=== PATIENT | male | born 1965 | race Caucasian/White ===

== ENCOUNTER 2025-04-04 18:49 | Emergency (ER) | payer BC, SELFPAY ==
[2025-04-04 18:56] VITALS: BP 165/109
[2025-04-04 19:17] LABS: Hematocrit 45.9 % (39.0-52.0); Hemoglobin 16.4 g/dL (13.0-18.0); Mean Corp Hgb Conc. 35.7 g/dL (33.0-37.0); Mean Corpuscular Volume 83.6 fL (80.0-94.0); Nucleated Red Blood Cells % 0 % (-); Platelet Count 265 10^3/uL (130-400); Red Cell Dist. Width 12.3 % (11.5-14.5)
[2025-04-04 19:20] LABS: Urine Character Slightly Cloudy (Clear)
[2025-04-04 19:33] LABS: ALT (SGPT) 29 U/L (0-50); AST (SGOT) 27 U/L (17-59); Albumin 5.0 g/dl (3.5-5.0); Alkaline Phosphatase 64 U/L (38-126); Blood Urea Nitrogen 18 mg/dl (9-20); Calcium 10.6 mg/dl (8.4-10.2); Carbon Dioxide 31 mmol/L (22-30); Chloride 99 mmol/L (98-107); Glucose 110 mg/dl (70-99); Lipase 167 U/L (23-300); Potassium 4.6 mmol/L (3.5-5.1); Sodium 136 mmol/L (135-145); Total Protein 8.0 g/dl (6.3-8.2); eGFR > 60.00
[2025-04-04 19:44] LABS: Urine Red Blood Cell 50-60 /HPF (0-2); Urine Squamous Cell 0-2 /LPF (Few); Urine Urothelial Cell 0-2 /LPF (FEW)
[2025-04-04] MEDS: TORADOL 15 MG IM (20:15)
[2025-04-04] MEDS: NSS 1000 IV (20:15)
[2025-04-04 20:20] VITALS: BMI 29.5
--- NOTE | 2025-04-04 20:51 | ED.GENMED ---
History of Present Illness
General
Chief Complaint: Flank Pain
Time Seen by Provider: 04/04/25 19:19
History of Present Illness
History of Present Illness:
59-year-old male with prior history of kidney stones presenting to the emergency department for left-sided flank pain. Patient reports symptoms started earlier this evening, after eating dinner. By time of arrival, pain has started to travel to
the left lower quadrant region of the abdomen. Notes previous kidney stone to the right side. Does report that he passed this kidney stone previously. Patient denies any history of abdominal surgeries. Denies any fever, nausea, vomiting. Does
report some urinary frequency without dysuria or hematuria. Denies chest pain or difficulty breathing or additional acute medical complaint
Past History
Past History
ED Past Medical History: Hypercholesterolemia
ED Past Surgical History: None
Social History
Tobacco: Non-smoker
Alcohol: Occasional
Drug: None
Personal:
Living: with family
Phy Exam
Physical Exam
Physical Exam:
General: Well-appearing, no clinical signs of dehydration, nontoxic and in no acute distress
HEENT: protecting airway
Neck: appears supple
CV: Normal heart rate, regular rhythm
Resp: No accessory muscle use, no increased work of breathing
Abd: Soft and non-distended, no tenderness to palpation
Extremities: No deformities, no swelling
Neuro: alert, no focal neurologic deficit
: deferred
Rectal: deferred
Psych: Normal affect
Skin: Intact
Course
Orders/Labs/Results
Orders:
Orders
04/04/25 19:10
Complete Blood Count/With Diff Urgent
Comprehensive Metabolic Panel Urgent
Lipase Urgent
Urinalysis Reflex To Culture Urgent
Date Specimen was Collected: 04/04/25
Time Specimen was Collected: 18:58
Urine Microscopic Reflex Cult Urgent
Urine Culture Urgent
JONATHAN Source: U
Specimen Description:
Date Specimen was Collected: 04/04/25
Time Specimen was Collected: 18:58
04/04/25 20:04
0.9% Sodium Chloride 1000 ml [Nss] 1,000 ml IV BOLUS
Ketorolac [Toradol] 15 mg IM NOW STA
04/04/25 20:05
CT Abd/pel Without Iv Or Oral Urgent
Comment:
Reason For Exam: L-sided pain, suspected stone
Abnormal Lab Results
04/04/25
19:10
Absolute Monos (auto) 0.7 H 10^3/uL
(0.1-0.6)
Monocytes % 9.6 H %
(1.7-9.3)
Carbon Dioxide 31 H mmol/L
(22-30)
Glucose 110 H mg/dl
(70-99)
Calcium 10.6 H mg/dl
(8.4-10.2)
Ur Occult Blood Reflex 4+ A
(Negative)
Leukocyte Esterase Rfl 1+ A
(Negative)
Urine RBC 50-60 A /HPF
(0-2)
Urine Bacteria (Reflex) Moderate A
(Negative)
Urine Albumin (Reflex) 2+ A
(Neg - Trace)
04/04/25 19:10
04/04/25 19:10
Vital Signs
Initial and Last Documented VS:
Initial Vital Signs
Temp Pulse Resp BP Pulse Ox
97.9 F 79 18 165/109 99
04/04/25 18:56 04/04/25 18:56 04/04/25 18:56 04/04/25 18:56 04/04/25 18:56
Last Documented Vital Signs
Temp Pulse Resp BP Pulse Ox
97.9 F 79 18 165/109 99
04/04/25 18:56 04/04/25 18:56 04/04/25 18:56 04/04/25 18:56 04/04/25 20:53
MDM/Problems Addressed
MDM/Problems Addressed:
59-year-old male with prior history of kidney stones presenting for left flank pain and abdominal pain. Vital signs on arrival are significant for hypertension.
On exam, patient is afebrile, nontoxic. Notes that pain has improved since arrival to the hospital. Pain initially in the left flank region, has not traveled to the left lower quadrant. Symptoms and physical exam appear most consistent with acute
kidney stone. Labs obtained prior to my assessment which do show mild leukocytosis. However no sign of UTI. There is blood in the urine, again likely indicating nephrolithiasis. Plan for CT abdomen pelvis. Toradol ministered for pain. Will
also administer IV fluids.
21:50 -patient CT is consistent with a 7.1 mm stone in the proximal left ureter with some mild hydronephrosis. Patient notes that his pain is currently controlled. At this time, given pain control and absence of any concerning features for
infection, feel stable for discharge with outpatient neurologic follow-up. Will start patient on Flomax. Patient declining any narcotic pain medication. Will prescribe higher dose ibuprofen. Strict return precautions were communicated to patient
verbalized understanding
*Pulse Oximetry
SaO2: 99
Oxygen Mode of Delivery: Room air
Patient hypoxic: no
*Critical Care Note
Total Time (30-74mins, 75-104mins- exclusive of procedures): Not Applicable
ED Attending Note
-
Portions of this chart may have been created with voice recognition software.� Occasional wrong word or��sound alike� substitutions may have occurred due to the inherent limitations of voice recognition software.
Discharge Plan
Departure
Prescriptions:
No Action
atorvastatin 10 MG tablet
10 mg PO QPM
ibuprofen 400 MG tablet
400 mg PO PRN PRN (Reason: pain)
lorazepam 1 MG tablet
1 mg PO DAILY PRN (Reason: anxiety) Qty: 10 0RF
Referrals:
Gloria Howard MD [Family Provider, Family Practice]
Interventions
Interventions:
*Risk Screen - Suicide Last Done: 04/04/25 18:56
*General Assessment Last Done: 04/04/25 18:56
*Neglect/Abuse Screening Last Done: 04/04/25 18:56
*ED COVID-19 Vaccine History Last Done: 04/04/25 18:56
*ED Influenza Vaccine History Last Done: 04/04/25 18:56
FY-Owwzbv-Ceoqkqhrjr Assessment Last Done: 04/04/25 20:18
ED-Male Genitourinary Assessment Last Done: 04/04/25 20:18
Discharge Date and Time
Print Language: SERBIAN
[2025-04-04 22:01] VITALS: BP 159/106
[2025-04-04] MEDS: FLOMAX 0.4 MG PO (22:08)
== END 2025-04-04 22:18 | disposition home or self-care (01) ==
LOC: EMR 18:49
PROVIDERS: Emergency Medicine; EMERGENCY PHYSICIAN Student in an Organized Health Care Education/Training Program; FAMILY PHYSICIAN Family Medicine
DX: N13.2 Hydronephrosis with renal and ureteral calculous obstruction (principal); D72.829 Elevated white blood cell count, unspecified; E78.00 Pure hypercholesterolemia, unspecified; Z87.442 Personal history of urinary calculi
CPT/HCPCS: 99284; 96360; 96372; 74176; 80053; 81003; 81015; 83690; 85025; 87086

== ENCOUNTER 2025-05-04 06:22 | Day surgery (SDC) | payer BC, SELFPAY ==
[2025-05-04] VITALS (10 sets, daily range): BP systolic 114–191; BP diastolic 65–118; BMI 28.1
[2025-05-04] MEDS: NORMOSOL-R/PLASMALYTE-A 1000 IV (14:20)
[2025-05-04] MEDS: SUBLIMAZE 50 MCG IV (19:31)
[2025-05-04] MEDS: TYLENOL 650 MG PO (19:51)
[2025-05-04] MEDS: ROXICODONE 5 MG PO (20:28)
== END 2025-05-04 21:05 | disposition home or self-care (01) ==
LOC: SDS 06:22
PROVIDERS: ATTENDING PHYSICIAN Specialist
DX: N20.2 Calculus of kidney with calculus of ureter (principal)
CPT/HCPCS: 52356; 74018; 76000; 80053; 85025; 93005; C1894

== ENCOUNTER 2025-05-04 23:56 | Emergency (ER) | payer BC, SELFPAY ==
[2025-05-05 00:10] VITALS: BP 172/106
[2025-05-05 00:42] LABS: Hematocrit 45.2 % (39.0-52.0); Hemoglobin 16.2 g/dL (13.0-18.0); Mean Corp Hgb Conc. 35.8 g/dL (33.0-37.0); Mean Corpuscular Volume 83.4 fL (80.0-94.0); Nucleated Red Blood Cells % 0 % (-); Platelet Count 270 10^3/uL (130-400); Red Cell Dist. Width 12.0 % (11.5-14.5)
[2025-05-05 00:58] LABS: ALT (SGPT) 26 U/L (0-50); AST (SGOT) 28 U/L (17-59); Albumin 5.2 g/dl (3.5-5.0); Alkaline Phosphatase 83 U/L (38-126); Blood Urea Nitrogen 16 mg/dl (9-20); Calcium 9.8 mg/dl (8.4-10.2); Carbon Dioxide 25 mmol/L (22-30); Chloride 102 mmol/L (98-107); Glucose 190 mg/dl (70-99); Potassium 4.3 mmol/L (3.5-5.1); Sodium 139 mmol/L (135-145); Total Protein 8.0 g/dl (6.3-8.2); eGFR > 60.00
[2025-05-05 01:29] VITALS: BP 178/95
[2025-05-05 01:35] VITALS: BMI 28.1
[2025-05-05 02:00] VITALS: BP 157/86
[2025-05-05 03:00] VITALS: BP 147/89
[2025-05-05 04:00] VITALS: BP 151/88
--- NOTE | 2025-05-05 04:00 | ED.GENMED ---
History of Present Illness
<Nathalia Saini MD, Resident - Last Filed: 05/05/25 04:18>
General
Chief Complaint: Flank Pain
Source: patient and spouse
Time Seen by Provider: 05/05/25 03:33
History of Present Illness
History of Present Illness:
Patient is a 60-year-old male with past medical history significant for hyperlipidemia, today he underwent elective cystoscopy, left ureteroscopy with stone fragmentation and removal and ureteral stent insertion. He was discharged around 830 to 9
PM and at that time he received something for pain in the hospital and was instructed to not take tramadol for the next 4 hours.
Around 1030 to 11 PM, patient had excruciating pain 10/10 in intensity, in the left flank, associated with some mild nausea. He did not take any tramadol at home since he was afraid that he was told not to take it for next 4 hours so he came to the
ER. In the ER, his pain self resolved and decreased in intensity to 3/10 and his blood pressure started to improve.
Denies any other symptoms including fever chills, vomiting, dizziness, lightheadedness, near-syncope or syncopal episodes.
Past History
<Nathalia Saini MD, Resident - Last Filed: 05/05/25 04:18>
Past History
ED Past Medical History: Hypercholesterolemia
ED Past Surgical History: None
Social History
Tobacco: Non-smoker
Alcohol: Occasional
Drug: None
Personal:
Living: with family
Review of Systems
<Nathalia Saini MD, Resident - Last Filed: 05/05/25 04:18>
Review of Systems
All Other Systems: ROS reviewed and negative except as documented in HPI and ROS
Phy Exam
<Nathalia Saini MD, Resident - Last Filed: 05/05/25 04:18>
General Physical Exam
General Presentation: well appearing and no apparent distress
General Skin: warm and dry
General Habitus: normal
General Mental: alert
Cardiovascular Exam
Cardiovascular Exam: regular rate/rhythm, no edema, no gallop, no murmur and normal peripheral pulses
Pulmonary Exam
Pulmonary Exam: lungs clear, no respiratory distress, no rales, no crackles and no rhonchi
Gastrointestinal Exam
Gastrointestinal Exam: normal bowel sounds, non tender and soft
Genitourinary Exam Male
Exam Male: other (HEMATURIA)
Neurological Exam
Neurological Exam: alert, oriented x3, no motor deficits and no sensory deficits
Musculoskeletal Exam
Musculoskeletal Exam: full ROM
Skin Exam
Skin Exam: normal color and warm/dry
Psychiatric Exam
Psychiatric Exam: normal mood/affect
Course
<Nathalia Saini MD, Resident - Last Filed: 05/05/25 04:18>
Orders/Labs/Results
Orders:
Orders
05/05/25 00:28
CBC/With Diff [Complete Blood Count/With Diff] Stat
Comprehensive Metabolic Panel Stat
05/05/25 04:00
Tramadol HCl [Ultram] 50 mg PO NOW ONE
Abnormal Lab Results
05/05/25
00:28
WBC 12.3 H 10^3/uL
(4.8-10.8)
Absolute Neuts (auto) 11.5 H 10^3/uL
(1.4-6.5)
Absolute Lymphs (auto) 0.6 L 10^3/uL
(1.2-3.4)
Neutrophils % 93.5 H %
(42.2-75.2)
Lymphocytes % 4.7 L %
(20.5-51.1)
Monocytes % 1.4 L %
(1.7-9.3)
Glucose 190 H mg/dl
(70-99)
Albumin 5.2 H g/dl
(3.5-5.0)
05/05/25 00:28
05/05/25 00:28
Vital Signs
Initial and Last Documented VS:
Initial Vital Signs
Pulse Resp BP Pulse Ox
89 16 172/106 100
05/05/25 00:10 05/05/25 00:10 05/05/25 00:10 05/05/25 00:10
Last Documented Vital Signs
Temp Pulse Resp BP Pulse Ox
99.1 F 97 22 147/89 96
05/05/25 01:35 05/05/25 03:45 05/05/25 03:45 05/05/25 03:00 05/05/25 04:02
<Alia Montoya, DO - Last Filed: 05/05/25 04:47>
Orders/Labs/Results
Orders:
Orders
05/05/25 00:28
CBC/With Diff [Complete Blood Count/With Diff] Stat
Comprehensive Metabolic Panel Stat
05/05/25 04:00
Tramadol HCl [Ultram] 50 mg PO NOW ONE
Abnormal Lab Results
05/05/25
00:28
WBC 12.3 H 10^3/uL
(4.8-10.8)
Absolute Neuts (auto) 11.5 H 10^3/uL
(1.4-6.5)
Absolute Lymphs (auto) 0.6 L 10^3/uL
(1.2-3.4)
Neutrophils % 93.5 H %
(42.2-75.2)
Lymphocytes % 4.7 L %
(20.5-51.1)
Monocytes % 1.4 L %
(1.7-9.3)
Glucose 190 H mg/dl
(70-99)
Albumin 5.2 H g/dl
(3.5-5.0)
12/06/25 00:28
05/05/25 00:28
Vital Signs
Initial and Last Documented VS:
Initial Vital Signs
Pulse Resp BP Pulse Ox
89 16 172/106 100
05/05/25 00:10 05/05/25 00:10 05/05/25 00:10 05/05/25 00:10
Last Documented Vital Signs
Temp Pulse Resp BP Pulse Ox
99.1 F 97 22 147/89 96
05/05/25 01:35 05/05/25 03:45 05/05/25 03:45 05/05/25 03:00 05/05/25 04:02
<Nathalia Saini MD, Resident - Last Filed: 05/05/25 04:18>
MDM/Problems Addressed
Differential Diagnosis Includes:
Pain related to recent procedure
Ureteric colic
MDM/Problems Addressed:
Patient underwent ureteral intervention (cystoscopy with left ureteroscopy, stone fragmentation and left sided ureteral stent) today.
Presented to ER with excruciating pain most likely secondary to inadequate pain management,cbc cmp in er wnl
Recommend using tramadol as needed for pain along with fiber in diet/Colace to help avoid constipation related to tramadol
Reassured the patient
Patient is supposed to follow-up with urology in 10 days
Plan; tramadol stat, observe, reassure and discharge
<Nathalia Sanii MD, Resident - Last Filed: 05/05/25 04:18>
*Pulse Oximetry
SaO2: 96
Oxygen Mode of Delivery: Room air
Patient hypoxic: no
*Critical Care Note
Total Time (30-74mins, 75-104mins- exclusive of procedures): Not Applicable
ED Attending Note
<Nathalia Saini MD, Resident - Last Filed: 05/05/25 04:18>
-
Portions of this chart may have been created with voice recognition software.� Occasional wrong word or��sound alike� substitutions may have occurred due to the inherent limitations of voice recognition software.
<Alia Montoya, DO - Last Filed: 05/05/25 04:47>
ED Attending Note
Patient seen and examined by attending physician: Yes
I performed a history and physical exam of patient and discussed management with resident, I reviewed resident's note and agree with documented findings and plan of care.: Yes
ED Attending Note:
60-year-old gentleman with history of kidney stones underwent lithotripsy and stent procedure of left kidney just yesterday. Discharged to home around 9 PM last night. Was prescribed tramadol to take for pain but states his discharge instructions
recommended holding off on pain medications for 4 hours postdischarge. Upon returning home left flank pain resumed around 10�11 PM and persisted prompting ED visit.
Since arrival to the ED, lengthy wait time, pain has since resolved. He admits to very mild discomfort but no significant flank nor abdominal pain.
He has been urinating dark maroon urine. No dysuria. No fever. Mild nausea with onset of pain but no vomiting.
60-year-old gentleman appears his stated age, awake and alert, pleasant, appears in no acute distress. Afebrile.
Abdomen: Mild left flank tenderness to palpation.
Patient urinating dark maroon urine but able to do so without difficulty.
Currently comfortable with only mild discomfort.
Labs show mildly elevated white blood cell count. Chemistries are unremarkable.
Will give an oral dose of tramadol now. Continue to observe.
Will prescribe Zofran for as needed nausea.
Discussed importance of staying well hydrated on a daily basis.
Okay to take tramadol as needed for pain and if ineffective or if he develops a fever, intractable vomiting, prompt return to the ED for further evaluation.
Discharge Plan
Departure
Patient Disposition: Home (Routine Discharge)
Date of Disposition: 05/05/25
Time of Disposition: 04:40
Patient with high blood pressure during this ER visit?: No
Condition: Good
Discharge Problem:
postoperative flank pain
Instructions: Renal Colic (DC)
Prescriptions:
New
ondansetron 4 mg tablet,disintegrating
4 mg PO QID PRN (Reason: nausea and vomiting) Qty: 20 0RF
No Action
atorvastatin 10 MG tablet
10 mg PO QPM
ibuprofen 800 mg tablet
800 mg PO Q8H PRN (Reason: Pain) Qty: 20 0RF
tamsulosin 0.4 mg Capsule
0.4 mg PO DAILY
sildenafil
1 tab PO PRN PRN (Reason: ED)
tramadol
1 tab PO PRN PRN (Reason: pain)
Referrals:
Telma Loera CRNP [Family Provider, Internal Medicine]
Mike Silva MD [Active, Urology] - Call in 1-3 days for appt
Interventions
Interventions:
*Risk Screen - Suicide Last Done: 05/05/25 00:10
*Neglect/Abuse Screening Last Done: 05/05/25 00:10
*ED COVID-19 Vaccine History Last Done: 05/05/25 00:10
*ED Influenza Vaccine History Last Done: 05/05/25 00:10
[facility] Fall Risk Assessment Tool Last Done: 05/05/25 01:36
QM-Eraphb-Cbykthkwpf Assessment Last Done: 05/05/25 01:50
ED-Male Genitourinary Assessment Last Done: 05/05/25 01:50
Discharge Date and Time
Print Language: ARMENIAN
[2025-05-05] MEDS: ULTRAM 50 MG PO (04:03)
== END 2025-05-05 05:30 | disposition home or self-care (01) ==
LOC: EMR 23:56
PROVIDERS: EMERGENCY PHYSICIAN Emergency Medicine; FAMILY PHYSICIAN Nurse Practitioner Family
DX: G89.18 Other acute postprocedural pain (principal); R10.A2 Flank pain, left side; R11.0 Nausea; E78.00 Pure hypercholesterolemia, unspecified
CPT/HCPCS: 99283; 80053; 85025

== ENCOUNTER 2025-05-06 20:20 | Emergency (ER) | payer BC, SELFPAY ==
[2025-05-06 20:27] VITALS: BP 200/126
[2025-05-06 21:03] VITALS: BP 155/104
[2025-05-06 21:16] LABS: Urine Character Cloudy (Clear)
[2025-05-06 21:26] LABS: Urine Squamous Cell 0-2 /LPF (Few)
[2025-05-06 21:27] LABS: Urine Red Blood Cell 70-80 /HPF (0-2); Urine White Cell 30-40 /HPF (0-5)
[2025-05-06 22:01] VITALS: BP 156/99
--- NOTE | 2025-05-06 22:23 | ED.GENMED ---
History of Present Illness
General
Chief Complaint: Urinary Symptoms
Source: patient and spouse
Time Seen by Provider: 05/06/25 20:34
History of Present Illness
History of Present Illness:
Note:
CHIEF COMPLAINT(S)
Back pain following lithotripsy.
HISTORY OF PRESENT ILLNESS
The patient is a 60-year-old male who presents with post-procedural symptoms following laser lithotripsy performed on Wednesday. The patient reports returning after midnight into Wednesday morning due to back pain. He describes initial hematuria
following the procedure, which has since diminished, noting that the urine has transitioned from bloody to yellow. The patient describes being up every 20 minutes overnight to void, producing only minimal amounts of urine each time. He denies
significant fevers but experienced sweating episodes followed by chills. The pain was reported to be around a level five on a scale of ten. There was no prescription of antibiotics following the procedure. The patient mentions concern about possible
clot retention or bladder outlet obstruction secondary to the procedure.
EXTERNAL RECORDS REVIEWED
The patients operative report for the recent lithotripsy was reviewed.
MEDICATIONS
The patient confirmed not being on any blood thinners.
PHYSICAL EXAM
General: Alert, cooperative, no acute distress.
Skin: Warm and dry.
Head: Normocephalic, atraumatic.
Neck: Supple, trachea midline.
Ear, Nose, and Throat: Oral mucosa moist.
Cardiovascular: Normal peripheral perfusion, no edema.
Respiratory: Respirations are non-labored. No respiratory distress.
Gastrointestinal: Abdomen nondistended.
Back: Normal range of motion, normal alignment.
Musculoskeletal: Normal range of motion, normal strength.
Neurological: Alert and oriented to person, place, time, and situation. No focal neurological deficit observed.
Psychiatric: Cooperative, appropriate mood and affect.
PROBLEM LIST
Acute:
1. Post-lithotripsy hematuria and back pain.
2. Possible bladder outlet obstruction or clot retention.
PLAN
1. Send urine for culture to rule out infection.
2. Continue monitoring urine output and color changes.
3. Coordinate follow-up with the urologist physical education professor regarding current symptoms and management.
4. Provide supportive care, monitor for further complications, and address the patients comfort.
DIFFERENTIAL DIAGNOSIS
The Differential Diagnosis includes, in no particular order and is not limited to:
1. Post-procedure inflammation or irritation
2. Clot retention
3. Urinary tract infection
4. Residual calculus fragments
5. Bladder outlet obstruction
6. Ureteral injury
7. Infection secondary to the procedure
8. Hydronephrosis
9. Hemorrhagic cystitis
10. Overactive bladder due to irritation
Disposition:
SUMMARY OF ENCOUNTER
A 60-year-old male presented to the emergency department following a recent urologic procedure, reporting urinary retention. Examination revealed no significant clots to suggest clot retention. The patient experienced improvement after a Del Castillo
catheter was placed. A urinalysis showed only a few bacteria, prompting a decision to culture. The patient was afebrile and appeared well, suggesting suitability for outpatient management.
DISPOSITION
Discharge
ASSESSMENT
Post-procedural urinary retention, no significant clots noted, possible bacterial presence.
PLAN
Urine culture to be conducted. A Del Castillo catheter will remain in place. The patient is advised to follow up with the urology office the next day, as instructed by Dr. Silva, who performed the procedure.
MANAGEMENT OF THE PATIENTS CARE WAS DISCUSSED WITH
Dr. Silva from Urology.
PATIENT EDUCATION AND COUNSELING
The patient was educated on the importance of keeping the Del Castillo catheter in place and was instructed to contact the urology office for a follow-up appointment the next day.
FOLLOW-UP INSTRUCTIONS
Follow up with the urology office tomorrow as advised by Dr. Silva.
MEDICAL DECISION MAKING
-Complexity of Data Reviewed: Acute condition affecting care.
-Data:
Category 3
Discussion of management with other physician: Dr. Silva, the urologist who performed the procedure.
-Risk: Consideration of Admission/Observation: Escalation of care including admission/observation was considered given the complexity and risk of the patients presenting complaint, exam findings, and/or their underlying comorbidities. However,
ultimately I feel the patient is safe for outpatient management with close follow up. Reasoning: Work-up reassuring, does not reveal any acute life/organ threatening processes, patients symptoms well controlled upon reevaluation, reexamination is
reassuring, vitals are stable, patient agreeable with discharge, reliable for follow-up.
DIAGNOSIS
Post-procedural urinary retention (ICD-10: R33.8).
Past History
Past History
ED Past Medical History: Hypercholesterolemia
ED Past Surgical History: None
Social History
Tobacco: Non-smoker
Alcohol: Occasional
Drug: None
Personal:
Living: with family
Phy Exam
Physical Exam
Physical Exam:
.
Course
Orders/Labs/Results
Orders:
Orders
05/06/25 20:58
Del Castillo [Del Castillo Placement- Treatment] ONCE
Reason for insertion: Acute Retention
05/06/25 21:09
Urinalysis Reflex To Culture Urgent
Date Specimen was Collected: 05/06/25
Time Specimen was Collected: 21:04
Urine Microscopic Reflex Cult Urgent
Urine Culture Urgent
JONATHAN Source: U
Specimen Description:
Date Specimen was Collected: 05/06/25
Time Specimen was Collected: 21:04
Abnormal Lab Results
05/06/25
21:09
Urine Ketones 1+ A
(Negative)
Ur Occult Blood Reflex 4+ A
(Negative)
Urine Nitrite (Reflex) Positive A
(Negative)
Leukocyte Esterase Rfl 1+ A
(Negative)
Urine RBC 70-80 A /HPF
(0-2)
Urine WBC (Reflex) 30-40 A /HPF
(0-5)
Urine Bacteria (Reflex) Few A
(Negative)
Urine Albumin (Reflex) 3+ A
(Neg - Trace)
Vital Signs
Initial and Last Documented VS:
Initial Vital Signs
Temp Pulse Resp BP Pulse Ox
97.7 F 124 26 200/126 97
05/06/25 20:27 05/06/25 20:27 05/06/25 20:27 05/06/25 20:27 05/06/25 20:27
Last Documented Vital Signs
Temp Pulse Resp BP Pulse Ox
97.7 F 124 26 156/99 97
05/06/25 20:27 05/06/25 20:27 05/06/25 20:27 05/06/25 22:01 05/06/25 22:25
*Pulse Oximetry
SaO2: 97
Oxygen Mode of Delivery: Room air
Patient hypoxic: no
*Critical Care Note
Total Time (30-74mins, 75-104mins- exclusive of procedures): Not Applicable
ED Attending Note
-
Portions of this chart may have been created with voice recognition software.� Occasional wrong word or��sound alike� substitutions may have occurred due to the inherent limitations of voice recognition software.
Discharge Plan
Departure
Patient Disposition: Home (Routine Discharge)
Date of Disposition: 05/06/25
Time of Disposition: 22:23
Patient with high blood pressure during this ER visit?: Yes
Discharge Problem:
Acute urinary retention
Instructions: Urinary retention (DC), BLOOD PRESSURE
Prescriptions:
No Action
atorvastatin 10 MG tablet
10 mg PO QPM
ibuprofen 800 mg tablet
800 mg PO Q8H PRN (Reason: Pain) Qty: 20 0RF
tamsulosin 0.4 mg Capsule
0.4 mg PO DAILY
sildenafil
1 tab PO PRN PRN (Reason: ED)
tramadol
1 tab PO PRN PRN (Reason: pain)
diazepam [Valium] 5 mg tablet
5 mg PO TID PRN (Reason: muscle spasm) Qty: 10 0RF
mirabegron 50 mg tablet extended release 24 hr
50 mg PO DAILY Qty: 10 0RF
Uro-MP 118-10-40.8-36 mg capsule
1 tab PO QID PRN (Reason: stent bother) Qty: 30 1RF
ondansetron 4 mg tablet,disintegrating
4 mg PO QID PRN (Reason: nausea and vomiting) Qty: 20 0RF
Referrals:
Telma Loera CRNP [Family Provider, Internal Medicine]
Activity Restrictions/Additional Instructions:
Please call Dr. Silva's office tomorrow for an appointment on Wednesday to see if the Del Castillo catheter can be removed. Return for fevers mentation, abdominal pain, back pain or any other concerns.
Interventions
Interventions:
*Risk Screen - Suicide Last Done: 05/06/25 20:27
*General Assessment Last Done: 05/06/25 21:58
*Neglect/Abuse Screening Last Done: 05/06/25 20:27
*ED COVID-19 Vaccine History Last Done: 05/06/25 21:58
*ED Influenza Vaccine History Last Done: 05/06/25 21:58
ED-Male Genitourinary Assessment Last Done: 05/06/25 21:58
Discharge Date and Time
Print Language: CYMRAES
[2025-05-06] MEDS: CEFTIN 500 MG PO (23:02)
== END 2025-05-06 23:51 | disposition home or self-care (01) ==
LOC: EMR 20:20
PROVIDERS: EMERGENCY PHYSICIAN Emergency Medicine; FAMILY PHYSICIAN Nurse Practitioner Family
DX: R33.8 Other retention of urine (principal); N99.89 Other postprocedural complications and disorders of genitourinary system; Y83.8 Other surgical procedures as the cause of abnormal reaction of the patient, or of later complication, without mention of misadventure at the time of the procedure; E78.00 Pure hypercholesterolemia, unspecified
CPT/HCPCS: 51702; 99283; 81003; 81015; 87086

== ENCOUNTER 2025-05-12 20:48 | Emergency (ER) | payer BC, SELFPAY ==
[2025-05-12 20:53] VITALS: BP 152/108
--- NOTE | 2025-05-12 22:14 | ED.GENMED ---
History of Present Illness
General
Chief Complaint: Male Genito-Urinary Symptoms
Source: patient
Exam Limitations: none
Time Seen by Provider: 05/12/25 21:00
Nursing documentation reviewed up to this point in time: agreed with
History of Present Illness
History of Present Illness:
60 yo male with a recent history of laser surgery for a kidney stone performed by Dr. Silva last week. Post-procedure, the patient experienced severe back pain and was unable to urinate properly, which resulted in multiple emergency department
visits. He described experiencing urinary frequency, approximately every 10 minutes, throughout the night following the procedure. Six nights ago, the patient returned to the emergency department and had a catheter placed due to inability to void
adequately. During a follow-up visit on Wednesday, the trial removal of the catheter failed, showing a post-void residual volume of approximately 300 milliliters, reported urgency, cramping, and infrequent urination necessitating reinsertion of the
catheter. Yesterday, both the catheter and a stent were removed. However, he continues to experience urinary discomfort and a sensation of fullness in the abdomen, fever or chills. He mentioned experiencing mild bloating and inability to empty his
bladder. On day 6 of Cefuroxime.
Past History
Past History
ED Past Medical History: Hypercholesterolemia
ED Past Surgical History: None
Social History
Tobacco: Non-smoker
Alcohol: Occasional
Drug: None
Personal:
Living: with family
Review of Systems
Review of Systems
Allergies reviewed?: Yes
All Other Systems: ROS reviewed and negative except as documented in HPI and ROS
Phy Exam
Physical Exam
Physical Exam:
GENERAL: No acute distress. A&Ox3.
CONSTITUTIONAL: Afebrile.
RESPIRATORY: Regular respirations, nonlabored, lungs clear.
CARDIOVASCULAR: Regular rate and rhythm, no murmurs, no rubs.
GI: Soft, nontender, normal BS
: Del Castillo catheter reinserted, draining well
MUSCULOSKELETAL: Moves with ease. Well perfused.
SKIN: Warm, dry, pink
PSYCH: Normal mood and affect. Well kept, interactive and appropriate
NEUROLOGIC: Awake, alert and oriented. No focal neurological deficits
Course
Orders/Labs/Results
Orders:
Orders
05/12/25 21:03
0.9% Sodium Chloride 1000 ml [Nss] 1,000 ml IV BOLUS
05/12/25 21:02
05/12/25 21:02
Vital Signs
Initial and Last Documented VS:
Initial Vital Signs
Temp Resp Pulse Ox
98.0 F 20 99
05/12/25 20:50 05/12/25 20:50 05/12/25 20:50
Last Documented Vital Signs
Temp Pulse Resp BP Pulse Ox
98.0 F 102 18 145/95 99
05/12/25 20:50 05/12/25 22:17 05/12/25 22:17 05/12/25 22:17 05/12/25 22:20
MDM/Problems Addressed
MDM/Problems Addressed:
60 yo male with a recent history of laser surgery for a kidney stone performed by Dr. Silva last week. Post-procedure, the patient experienced severe back pain and was unable to urinate properly, which resulted in multiple emergency department
visits. He described experiencing urinary frequency, approximately every 10 minutes, throughout the night following the procedure. Six nights ago, the patient returned to the emergency department and had a catheter placed due to inability to void
adequately. During a follow-up visit on Wednesday, the trial removal of the catheter failed, showing a post-void residual volume of approximately 300 milliliters, reported urgency, cramping, and infrequent urination necessitating reinsertion of the
catheter. Yesterday, both the catheter and a stent were removed. However, he continues to experience urinary discomfort and a sensation of fullness in the abdomen, fever or chills. He mentioned experiencing mild bloating and inability to empty his
bladder. On day 6 of Cefuroxime.
Afebrile, NAD
No infectious symptoms
Bladder scan: 895 ml residual
Del Castillo placed, urine clear fredi.
Pt stable for discharge will f/u with Urology in 2 days (Wednesday)
*Pulse Oximetry
SaO2: 99
Oxygen Mode of Delivery: Room air
Patient hypoxic: not evaluated
*Critical Care Note
Total Time (30-74mins, 75-104mins- exclusive of procedures): Not Applicable
ED Attending Note
-
Portions of this chart may have been created with voice recognition software.� Occasional wrong word or��sound alike� substitutions may have occurred due to the inherent limitations of voice recognition software.
Discharge Plan
Departure
Patient Disposition: Home (Routine Discharge)
Date of Disposition: 05/12/25
Time of Disposition: 22:13
Patient with high blood pressure during this ER visit?: No
Condition: Good
Discharge Problem:
Acute retention of urine
Instructions: How to Care for Your Del Castillo Catheter, Male, Urinary Retention (DC)
Prescriptions:
No Action
atorvastatin 10 MG tablet
10 mg PO QPM
ibuprofen 800 mg tablet
800 mg PO Q8H PRN (Reason: Pain) Qty: 20 0RF
tamsulosin 0.4 mg Capsule
0.4 mg PO DAILY
sildenafil
1 tab PO PRN PRN (Reason: ED)
tramadol
1 tab PO PRN PRN (Reason: pain)
diazepam [Valium] 5 mg tablet
5 mg PO TID PRN (Reason: muscle spasm) Qty: 10 0RF
mirabegron 50 mg tablet extended release 24 hr
50 mg PO DAILY Qty: 10 0RF
Uro-MP 118-10-40.8-36 mg capsule
1 tab PO QID PRN (Reason: stent bother) Qty: 30 1RF
ondansetron 4 mg tablet,disintegrating
4 mg PO QID PRN (Reason: nausea and vomiting) Qty: 20 0RF
cefuroxime axetil 500 mg tablet
500 mg PO BID 7 Days Qty: 14 0RF
Referrals:
Mike Silva MD [Active, Urology] - Call in 1-3 days for appt
Telma Loera CRNP [Family Provider, Internal Medicine]
Activity Restrictions/Additional Instructions:
As we discussed, call Dr. Silva's office on Wednesday morning and inform of today's visit and ask when they want to see you for follow-up.
Interventions
Interventions:
*Risk Screen - Suicide Last Done: 05/12/25 21:06
*General Assessment Last Done: 05/12/25 20:50
*Neglect/Abuse Screening Last Done: 05/12/25 21:06
*ED COVID-19 Vaccine History Last Done: 05/12/25 21:06
*ED Influenza Vaccine History Last Done: 05/12/25 21:06
[facility] Fall Risk Assessment Tool Last Done: 05/12/25 21:08
*Nursing Disposition Last Done: 05/12/25 22:17
ED-Male Genitourinary Assessment Last Done: 05/12/25 21:06
Discharge Date and Time
Discharge Date/Time: 05/12/25 22:18
Print Language: MOLDOVAN
[2025-05-12 22:17] VITALS: BP 145/95
== END 2025-05-12 22:18 | disposition home or self-care (01) ==
LOC: EMR 20:48
PROVIDERS: EMERGENCY PHYSICIAN Student in an Organized Health Care Education/Training Program; FAMILY PHYSICIAN Nurse Practitioner Family
DX: R33.9 Retention of urine, unspecified (principal); E78.00 Pure hypercholesterolemia, unspecified; Z87.442 Personal history of urinary calculi
CPT/HCPCS: 99282; 51702

== ENCOUNTER 2025-05-23 06:02 | Day surgery (SDC) | payer BC, SELFPAY ==
--- NOTE | 2025-05-17 16:55 | PTCARENOTE ---
Abnormal ECG done 05/04/[address] Delarosa, no further interventions requested.
[2025-05-23] VITALS (13 sets, daily range): BP systolic 129–167; BP diastolic 84–105; BMI 26.6
[2025-05-23] MEDS: NORMOSOL-R/PLASMALYTE-A 1000 IV (08:14)
--- NOTE | 2025-05-23 08:34 | PTCARENOTE ---
Del Castillo removed at 0830 without complications.
[2025-05-23 10:17] LABS: Urine Character Clear (Clear)
[2025-05-23] MEDS: DILAUDID 0.25 MG IV (10:35)
[2025-05-23 11:04] LABS: Urine Squamous Cell 0-2 /LPF (Few)
[2025-05-23 11:06] LABS: Urine White Cell 0-2 /HPF (0-5)
[2025-05-23] MEDS: COLACE 100 MG PO ×2 (12:27→18:20)
[2025-05-23] MEDS: LIPITOR 10 MG PO (18:20)
--- NOTE | 2025-05-23 22:30 | PTCARENOTE ---
Pt. returned to bed from bathroom around 2220, noted minimal output in catheter disproportionate to the amount infusing. Pt. in NAD but feels as if his bladder is filling up. Hand irrigated catheter per orders and one small clot retrieved.
Appropriate output in catheter immediately upon reconnecting tubing. Clear pink urine draining without clots. CBI remains infusing at slow-medium rate without issue.
[2025-05-24 03:05] VITALS: BP 142/89
[2025-05-24] MEDS: ROCEPHIN 2000 MG IV (06:01)
[2025-05-24] MEDS: STERILE WATER FOR INJECTION 20 ML IV (06:02)
[2025-05-24 06:24] LABS: Hematocrit 40.8 % (39.0-52.0); Hemoglobin 14.5 g/dL (13.0-18.0); Mean Corp Hgb Conc. 35.5 g/dL (33.0-37.0); Mean Corpuscular Volume 84.0 fL (80.0-94.0); Nucleated Red Blood Cells % 0 % (-); Platelet Count 286 10^3/uL (130-400); Red Cell Dist. Width 11.9 % (11.5-14.5)
[2025-05-24 06:46] LABS: Blood Urea Nitrogen 16 mg/dl (9-20); Calcium 9.3 mg/dl (8.4-10.2); Carbon Dioxide 28 mmol/L (22-30); Chloride 103 mmol/L (98-107); Estimated Creatinine Clearance 79 ml/min; Glucose 98 mg/dl (70-99); Potassium 4.1 mmol/L (3.5-5.1); Sodium 135 mmol/L (135-145); eGFR > 60.00
[2025-05-24 07:10] VITALS: BP 136/88
--- NOTE | 2025-05-24 07:30 | W.PN.UPDATE ---
Update Note
Progress Note Update
pt s/p TURP
garnica out- pt has voided once- reardon with small clot
TOV this am- if voiding and urine clearing- discharge home
[2025-05-24] MEDS: COLACE 100 MG PO (09:00)
[2025-05-24 11:43] VITALS: BP 140/89
[2025-05-24] MEDS: COLACE PO (13:36)
== END 2025-05-24 13:37 | disposition home or self-care (01) ==
LOC: SDS 06:02
PROVIDERS: ATTENDING PHYSICIAN Specialist
DX: N40.1 Benign prostatic hyperplasia with lower urinary tract symptoms (principal); R33.8 Other retention of urine
CPT/HCPCS: 52601; 80048; 81003; 81015; 85025; 87077; 87086; 87147; 87186; 88305